=== PATIENT | male | born 1990 | race Caucasian/White ===

== ENCOUNTER 2017-11-13 11:30 | Emergency (ER) | payer BC, MEDICAID | END 2017-11-13 12:12 | disposition left against medical advice (07) | LOC: JP.ED 11:30 | DX: Z53.21 Procedure and treatment not carried out due to patient leaving prior to being seen by health care provider (principal) ==

== ENCOUNTER 2018-06-30 19:29 | Emergency (ER) | payer BC ==
[2018-06-30 19:52] VITALS: BP 149/98
--- NOTE | 2018-06-30 20:12 | EDM.PDOC ---
ED HPI GENERAL MEDICAL PROBLEM - General Chief Complaint: General Stated Complaint: tooth pain Time Seen by Provider: 06/30/18 20:00 Source of Information: Reports: Patient History Limitations: Reports: No Limitations - History of Present Illness INITIAL COMMENTS - FREE TEXT/NARRATIVE: 27-year-old male with chronic dental pain, saw a dentist last week and is referred to an oral surgeon but is alternating anti-inflammatories and Tylenol and is having significant discomfort, inability to sleep. No significant facial swelling or fever. Duration: Week(s): (Symptoms have been waxing and waning for weeks, worse the last 5-7 days) Associated Symptoms: Denies: Fever/Chills, Headaches right upper Pain Score (Numeric/FACES): 9 - Related Data Allergies Allergy/AdvReac Type Severity Reaction Status Date / Time amoxicillin trihydrate Allergy Rash Verified 06/30/18 20:00 [From Augmentin] morphine Allergy Rash Verified 06/30/18 20:00 Morpholine Analogues Allergy Cannot Verified 06/30/18 20:00 Remember potassium clavulanate Allergy Rash Verified 06/30/18 20:00 [From Augmentin] Home Meds: Home Meds Acetaminophen [Acetaminophen Extra Strength] 500 mg PO DAILY PRN 06/30/18 [ History] Ibuprofen 800 mg PO DAILY PRN 06/30/18 [History] Ofloxacin 5 drop EARLF BID 06/30/18 [History] Past Medical History HEENT History: Reports: Other (See Below) Other HEENT History: perforated ear drum, seeing ENT on saturday Gastrointestinal History: Reports: Hiatal Hernia Musculoskeletal History: Reports: Fracture - Past Surgical History HEENT Surgical History: Reports: Other (See Below) Other HEENT Surgeries/Procedures: multiple ear surgeries GI Surgical History: Reports: EGD, Hernia Repair/Other Musculoskeletal Surgical History: Reports: Other (See Below) Other Musculoskeletal Surgeries/Procedures:: left arm reconstruction surgery Social & Family History - Family History Family Medical History: Unobtainable - Tobacco Use Smoking Status *Q: Current Every Day Smoker Years of Tobacco use: 16 Packs/Tins Daily: 0.5 - Caffeine Use Caffeine Use: Reports: None - Recreational Drug Use Recreational Drug Use: No ED ROS GENERAL - Review of Systems Review Of Systems: See Below Constitutional: Denies: Fever, Chills Respiratory: Denies: Shortness of Breath Cardiovascular: Denies: Chest Pain GI/Abdominal: Denies: Abdominal Pain, Nausea, Vomiting Skin: Reports: No Symptoms ED EXAM, GENERAL - Physical Exam Exam: See Below Exam Limited By: No Limitations General Appearance: Alert, No Apparent Distress (Looks uncomfortable but not distressed) Throat/Mouth: Other (Fairly significant dental decay of the second molar of the right mandible, some erythema of the gingiva on the right mandibular molars) Course - Vital Signs Last Recorded V/S: Last Vital Signs Temp 99.5 F 06/30/18 20:03 Pulse 84 06/30/18 20:03 Resp 16 06/30/18 20:03 BP 149/98 H 06/30/18 20:03 Pulse Ox 99 06/30/18 20:03 - Re-Assessments/Exams Free Text/Narrative Re-Assessment/Exam: 06/30/18 22:29 Patient was placed on clindamycin 300 mg 3 times a day for at least 5 days, and given 10 Percocet for extra pain control. He can return if worsening such as increased swelling or fever. Departure - Departure Time of Disposition: 20:21 Disposition: Home, Self-Care 01 Condition: Good Clinical Impression: Dental abscess - Discharge Information Instructions: Dental Abscess, [id number] Referrals: PCP,None [Primary Care Provider] - Forms: ED Department Discharge Care Plan Goals: Take antibiotic as prescribed, continue with anti-inflammatories and Tylenol and add stronger pain medication as prescribed. Return if worsening despite treatment such as facial inflammation or fever.
== END 2018-06-30 20:21 | disposition home or self-care (01) ==
LOC: JP.ED 19:29
DX: K04.7 Periapical abscess without sinus (principal); F17.210 Nicotine dependence, cigarettes, uncomplicated; Z88.1 Allergy status to other antibiotic agents; Z88.5 Allergy status to narcotic agent; Z79.899 Other long term (current) drug therapy
CPT/HCPCS: 99282

== ENCOUNTER 2022-08-25 19:17 | Emergency (ER) | payer BC ==
[2022-08-25 19:36] VITALS: BP 123/85; PULSE 74
[2022-08-25] MEDS ORDERED: Sodium Chloride 0.9% 10 ML Syringe FLUSH PRN (19:54)
[2022-08-25] MEDS ORDERED: Ondansetron 4 MG/2 ML SDV IVPUSH ONE (19:54)
[2022-08-25] MEDS ORDERED: HYDROmorphone 1 MG/ML Syringe IVPUSH ONE (19:54)
[2022-08-25] MEDS ORDERED: HYDROmorphone 0.5 MG/0.5 ML Syringe IVPUSH ONE (21:19)
== END 2022-08-25 23:17 | disposition home or self-care (01) ==
LOC: JP.ED 19:17
DX: S82.142A Displaced bicondylar fracture of left tibia, initial encounter for closed fracture (principal); S82.812A Torus fracture of upper end of left fibula, initial encounter for closed fracture; F17.210 Nicotine dependence, cigarettes, uncomplicated; Z88.0 Allergy status to penicillin; Z88.5 Allergy status to narcotic agent; Z88.8 Allergy status to other drugs, medicaments and biological substances; W22.8XXA Striking against or struck by other objects, initial encounter
CPT/HCPCS: 73590; 73700; 76377; 96374; 96375; 96376; 99284; J1170; J2405; J3490

== ENCOUNTER 2022-10-01 07:24 | Day surgery (SDC) | payer BC ==
[2022-10-01] MEDS ORDERED: Nozin Nasal Sanitizer NASBOTH ONE (07:30)
[2022-10-01 07:49] LABS: HEMATOCRIT 43.7 % (38.4-49.7); HEMOGLOBIN 15.2 g/dL (12.9-16.9); MEAN CORPUSCULAR HEMOGLOBIN 31.1 pg (31.6-35.5); MEAN CORPUSCULAR HGB CONC 34.8 g/dL (31.6-35.5); MEAN CORPUSCULAR VOLUME 89.4 fL (81.4-99.0); RED BLOOD CELL COUNT 4.89 M/uL (4.14-5.76); WHITE BLOOD CELL COUNT,WBC 5.7 K/uL (3.2-11.0)
[2022-10-01] MEDS ORDERED: Lactated Ringers 1,000 ML IV SCH (08:00)
[2022-10-01 08:10] LABS: A/G RATIO 1.3 (1.2-2.2); ALANINE AMINOTRANSFERASE,ALT 34 U/L (12-78); ALKALINE PHOSPHATASE 108 U/L (46-116); ASPARTATE AMNIOTRANSFERASE,AST 16 U/L (15-37); BILIRUBIN TOTAL 0.5 mg/dL (0.2-1.0); BLOOD UREA NITROGEN,BUN 15 mg/dL (7-18); CARBON DIOXIDE,CO2 31 mmol/L (21-32); CHLORIDE,CL 101 mmol/L (100-108); CREATININE 0.9 mg/dL (0.8-1.3); EST CRCL DRUG DOSING (CG) 147.13 mL/min; ESTIMATED GFR 116 mL/min (>60); GLUCOSE RANDOM 97 mg/dL (74-106); POTASSIUM,K 3.8 mmol/L (3.6-5.2); SODIUM,NA 139 mmol/L (140-148)
[2022-10-01 08:11] LABS: ANION GAP 10.8 mmol/L (5.0-14.0)
[2022-10-01] MEDS ORDERED: ceFAZolin 2 GM in Premix Bag 1 BAG IV ONE (08:30)
[2022-10-01] MEDS ORDERED: fentaNYL 250 MCG/5 ML SDV ONE ×2 (08:53→09:29)
[2022-10-01] MEDS ORDERED: Neostigmine Methylsulfate 1 MG/ML 5 ML Syringe ONE (08:54)
[2022-10-01] MEDS ORDERED: Glycopyrrolate 0.2 MG/ML 5 ML MDV ONE (08:54)
[2022-10-01] MEDS ORDERED: Propofol 200 MG/20 ML SDV ONE (08:54)
[2022-10-01] MEDS ORDERED: Rocuronium 50 MG/5 ML Vial ONE ×2 (08:54→10:39)
[2022-10-01] MEDS ORDERED: Ondansetron 4 MG/2 ML SDV ONE (08:54)
[2022-10-01] MEDS ORDERED: Dexamethasone 4 MG/ML SDV ONE (08:54)
[2022-10-01] MEDS: Bupivacaine 0.5% 50 ML MDV ONE ×2 (10:06→11:32)
[2022-10-01] MEDS ORDERED: fentaNYL 100 MCG/2 ML SDV ONE ×2 (11:22→12:06)
[2022-10-01] MEDS ORDERED: Ketorolac 30 MG/ML SDV ONE (12:07)
[2022-10-01] MEDS ORDERED: HYDROmorphone 2 MG Tab PO ONE ×2 (13:37→14:12)
[2022-10-01 14:45] VITALS: BP 115/74; PULSE 69
== END 2022-10-01 15:10 | disposition home or self-care (01) ==
LOC: JP.SDS 07:24
PROVIDERS: ATTEND Specialist
DX: S83.252A Bucket-handle tear of lateral meniscus, current injury, left knee, initial encounter (principal); S83.512A Sprain of anterior cruciate ligament of left knee, initial encounter; F43.10 Post-traumatic stress disorder, unspecified; M40.209 Unspecified kyphosis, site unspecified; F17.210 Nicotine dependence, cigarettes, uncomplicated; F41.9 Anxiety disorder, unspecified; Z88.1 Allergy status to other antibiotic agents; Z88.5 Allergy status to narcotic agent; X58.XXXA Exposure to other specified factors, initial encounter
CPT/HCPCS: 29881; 29888; 36415; 80053; 85027; A9270; C1713; C1762; J0690; J1100; J1885; J2405; J2704; J2710; J3010; J3490; J7120

== ENCOUNTER 2023-12-11 18:53 | Emergency (ER) | payer OTHER, BC ==
[2023-12-11] MEDS: fentaNYL 100 MCG/2 ML SDV IVPUSH ONE (19:02)
[2023-12-11] MEDS ORDERED: Naloxone 0.4 MG/ML SDV IVPUSH PRN ×2 (19:35→21:32)
[2023-12-11] MEDS: HYDROmorphone 0.5 MG/0.5 ML Syringe IVPUSH ONE ×2 (19:41→21:40)
[2023-12-11] MEDS ORDERED: Propofol 200 MG/20 ML SDV ONE (21:49)
[2023-12-11 22:23] VITALS: BP 122/78; PULSE 87
== END 2023-12-11 22:36 | disposition home or self-care (01) ==
LOC: JP.ED 18:53
DX: S82.851A Displaced trimalleolar fracture of right lower leg, initial encounter for closed fracture (principal); F17.210 Nicotine dependence, cigarettes, uncomplicated; Z88.0 Allergy status to penicillin; Z88.5 Allergy status to narcotic agent; Z88.8 Allergy status to other drugs, medicaments and biological substances; X50.1XXA Overexertion from prolonged static or awkward postures, initial encounter
CPT/HCPCS: 27818; 73600; 76000; 96374; 96375; 96376; 99283; 99284; J1171; J2704; J3010; 99156; 99157